=== PATIENT | female | born 1980 | race Two or more races ===

== ENCOUNTER 2016-09-30 13:27 | Emergency (ER) | payer BC ==
[~2016-09-30] VITALS: Ht 154.9 cm; Wt 85.7 kg
[2016-09-30 16:28] LABS: BASOPHIL % 0.4 % (0-2); PLATELET COUNT 333 x10^3mcL (130-400)
[2016-09-30 16:39] LABS: RED CELL DISTRIBUTION WIDTH 15.4 % (11.5-14.5)
[2016-09-30 16:49] LABS: CALCIUM 8.9 mg/dL (8.5-10.1); CARBON DIOXIDE 24.7 mmol/L (21-32); CHLORIDE SERUM 110 mmol/L (98-107); CREATININE SERUM 0.8 mg/dL (0.6-1.0); GFR1 > 60 mL/min; GLUCOSE SERUM 84 mg/dL (74-106); SODIUM SERUM 146 mmol/L (136-145)
[2016-09-30 16:54] LABS: ALBUMIN 3.4 g/dL (3.4-5.0); ALKALINE PHOSPHATASE 52 U/L (46-116); ALT/SGPT 17 U/L (14-59); AST/SGOT 14 U/L (15-37); BILIRUBIN TOTAL 0.26 mg/dL (0.20-1.00); TOTAL PROTEIN, SERUM 7.4 g/dL (6.4-8.2)
[2016-09-30 17:49] VITALS: BP 112/68
== END 2016-09-30 17:50 | disposition home or self-care (01) ==
LOC: ED 13:27
PROVIDERS: Emergency Medicine
DX: R42 Dizziness and giddiness (principal); R51 Headache; Z88.2 Allergy status to sulfonamides
CPT/HCPCS: 36415; J8597